=== PATIENT | male | born 1950 | race Caucasian/White ===

== ENCOUNTER 2018-05-11 03:16 | Emergency (ER) | payer BC ==
[~2018-05-11] VITALS: Ht 170.2 cm; Wt 74.5 kg
[2018-05-11 04:21] LABS: CLARITY,URINE CLEAR (Clear); COLOR,URINE YELLOW (Yellow); GLUCOSE, URINE NEGATIVE (Neg); KETONES,URINE NEGATIVE (Neg); LEUKOCYTE ESTERASE ,URINE TRACE (Neg); NITRITES, URINE NEGATIVE (Neg); OCCULT BLOOD,URINE LARGE (Neg); PROTEIN,URINE NEGATIVE (Neg)
[2018-05-11 04:24] LABS: UA COLLECTION TYPE FOLEY CATH
[2018-05-11 04:25] LABS: BACTERIA,URINE 4+ /HPF (Neg); SQUAMOUS EPITHELIAL CELL,UR NONE SEEN /LPF (FEW)
[2018-05-11] MEDS ORDERED: tamsulosin 0.4mg capsule PO ONE (04:25)
[2018-05-11] MEDS ORDERED: ciprofloxacin 250mg tablet PO ONE (04:30)
[2018-05-11] MEDS ORDERED: CIPR250T4 PO (04:32)
[2018-05-11] MEDS ORDERED: FLO0.4C PO (04:32)
[2018-05-11] MEDS ORDERED: NAPR-56 PO (04:34)
[2018-05-11 04:50] VITALS: BP 114/65
== END 2018-05-11 05:07 | disposition home or self-care (01) ==
LOC: ER 03:16
DX: N13.8 Other obstructive and reflux uropathy (principal); N39.0 Urinary tract infection, site not specified; E11.9 Type 2 diabetes mellitus without complications; Z90.49 Acquired absence of other specified parts of digestive tract; Z79.899 Other long term (current) drug therapy
CPT/HCPCS: 51702; 81001; 87077; 87088; 87186; 99284

== ENCOUNTER 2018-05-15 20:37 | Emergency (ER) | payer BC ==
[~2018-05-15] VITALS: Ht 170.2 cm; Wt 78.8 kg
[~2018-05-15 20:37] MED LIST: CIPR250T4 PO; FLO0.4C PO; NAPR-56 PO
[2018-05-15 20:48] VITALS: BP 154/90
== END 2018-05-15 21:51 | disposition home or self-care (01) ==
LOC: ER 20:37
DX: R33.9 Retention of urine, unspecified (principal); E11.9 Type 2 diabetes mellitus without complications; Z98.890 Other specified postprocedural states; Z90.49 Acquired absence of other specified parts of digestive tract; Z79.899 Other long term (current) drug therapy
CPT/HCPCS: 51702; 99284

== ENCOUNTER 2022-10-11 14:37 | Emergency (ER) | payer BC ==
[~2022-10-11] VITALS: Ht 167.6 cm; Wt 72.7 kg
[~2022-10-11 14:37] MED LIST changes: -FLO0.4C PO; -NAPR-56 PO
[2022-10-11] MEDS ORDERED: LIDOcaine 1% W/epiNEPHrine 1:100,000 20ml vial SQ ONE (14:45)
[2022-10-11] MEDS ORDERED: piperacillin/tazo 3.375gm/50ml 50 ML IV ONE (14:50)
[2022-10-11] MEDS ORDERED: vancomycin/NS 1 GM ADD-VANTAGE 250 ML IV ONE (14:50)
--- NOTE | 2022-10-11 15:23 | NUR ---
EREN OVERTON AT BEDSIDE, FINGERTIP REATTACHED
[2022-10-11] MEDS ORDERED: DOXY-11 PO (15:41)
[2022-10-11] MEDS ORDERED: SULF1TAB49 PO (15:41)
[2022-10-11] MEDS ORDERED: OXYC-145 PO (15:42)
[2022-10-11] MEDS ORDERED: nitroGLYCERIN 1gm ointment UD TP ONE (15:45)
--- NOTE | 2022-10-11 15:48 | NUR ---
PER EREN OVERTON, NITRO OINTMENT IS TO IMPROVE BLOODFLOW TO THE AMPUTATED EXTREMITY. PROVIDER TO ADMINISTER DOSE WILL BE LESS THAN THAT LISTED IN THE MAR
[2022-10-11] MEDS ORDERED: HYDROcodone/acetaminophen 5mg/325mg tablet PO ONE (16:00)
[2022-10-11 17:17] VITALS: BP 115/67
== END 2022-10-11 17:20 | disposition home or self-care (01) ==
LOC: ER 14:37
DX: S61.219A Laceration without foreign body of unspecified finger without damage to nail, initial encounter (principal); X58.XXXA Exposure to other specified factors, initial encounter; Y93.89 Activity, other specified; Y92.89 Other specified places as the place of occurrence of the external cause; Y99.8 Other external cause status; Z88.1 Allergy status to other antibiotic agents; Z79.899 Other long term (current) drug therapy; Z88.2 Allergy status to sulfonamides
CPT/HCPCS: 12001; 96365; 96367; 99284; J2543; J3370; A6258